=== PATIENT | male | born 1965 | race Caucasian/White ===

== ENCOUNTER 2024-01-05 23:01 | Emergency (ER) | payer OTHER | END 2024-01-05 23:09 | disposition left against medical advice (07) | LOC: ER 23:06 | DX: F29 Unspecified psychosis not due to a substance or known physiological condition (principal); Z53.21 Procedure and treatment not carried out due to patient leaving prior to being seen by health care provider ==

== ENCOUNTER 2024-11-11 19:12 | Emergency (ER) | payer OTHER | END 2024-11-11 21:12 | disposition left against medical advice (07) | LOC: ER 19:15 | DX: J11.1 Influenza due to unidentified influenza virus with other respiratory manifestations (principal); Z53.21 Procedure and treatment not carried out due to patient leaving prior to being seen by health care provider ==

== ENCOUNTER 2025-03-02 12:23 | Inpatient (IN) | payer OTHER ==
[~2025-03-02] VITALS: Ht 175.3 cm; Wt 62.6 kg
[2025-03-02] MEDS ORDERED: KETOROLAC TROMETHAMINE 15 MG/ML VIAL ONE (13:00)
[2025-03-02] MEDS ORDERED: LORAZEPAM INJ 2 MG/ML VIAL ONE (13:01)
[2025-03-02] MEDS: KETOROLAC TROMETHAMINE 15 MG/ML VIAL IV ONE (13:08)
[2025-03-02] MEDS: LORAZEPAM INJ 2 MG/ML VIAL IV ONE (13:08)
[2025-03-02] MEDS: IV NS 0.9% 1,000 ML BAG IV ONE ×2 (13:09→16:52)
[2025-03-02 13:44] LABS: BASOPHILS % (AUTO) 0.2 % (0.0-2.0); HEMATOCRIT 41 % (39-51); HEMOGLOBIN 13.5 g/dL (13.5-17.5); LYMPHOCYTES # (AUTO) 1.6 K/uL (0.8-4.8); LYMPHOCYTES % (AUTO) 6.7 % (20.0-44.0); MEAN CORPUSCULAR HEMOGLOBIN 29 PG (26.0-33.0); MEAN CORPUSCULAR HGB CONC 33 g/dl (31.0-36.0); MEAN CORPUSCULAR VOLUME 88 fL (80-96); MONOCYTES # (AUTO) 1.9 K/uL (0.1-1.30); MONOCYTES % (AUTO) 8.2 % (2.0-12.0); NEUTROPHILS # (AUTO) 20.1 K/uL (1.8-8.9); NEUTROPHILS % (AUTO) 84.9 % (43.0-81.0); PLATELET COUNT (AUTO) 419 K/uL (150-450); RED BLOOD CELL COUNT(AUTO) 4.65 MIL/uL (4.5-6.0); RED CELL DISTRIBUTION WIDTH 15.1 % (11.5-15.0); WHITE BLOOD COUNT (AUTO) 23.7 K/uL (4.3-11.0)
[2025-03-02 13:55] LABS: ALANINE AMINOTRANSFERASE 185 U/L (12-78); ALBUMIN 4.3 g/dL (3.4-5.0); ALCOHOL, BLOOD < 3 mg/dL (0-10); ALKALINE PHOSPHATASE 116 U/L (46-116); ASPARTATE AMINOTRANSFERASE 762 U/L (15-37); BILIRUBIN,DIRECT 0.2 mg/dL (0.0-0.2); BILIRUBIN,TOTAL 0.8 mg/dL (0.2-1.0); CALCIUM, SERUM 8.2 mg/dL (8.5-10.1); CARBON DIOXIDE 19 mmol/L (21-32); CHLORIDE 88 mmol/L (98-107); CREATININE 4.4 mg/dL (0.6-1.3); GLUCOSE 101 mg/dL (74-106); POTASSIUM 5.5 mmol/L (3.5-5.1); SODIUM SERUM 126 mmol/L (136-145); TOTAL PROTEIN, SERUM 8.2 g/dL (6.4-8.2)
[2025-03-02 14:09] LABS: ACETAMINOPHEN <10 ug/ml (10-30); SALICYLATE 2.4 mg/dL (2.8-20.0)
[2025-03-02 14:10] LABS: UREA NITROGEN, BLOOD 104 mg/dL (7-18)
[2025-03-02] MEDS: VANCOMYCIN 1 GM in IV D5W 250 ML IV ONE (16:52)
[2025-03-02] MEDS: PIPERACILLIN /TAZOBACTAM 3.375 G in IV D5W 50 ML IV ONE (16:53)
[2025-03-02 17:19] LABS: AMPHETAMINE, URINE POSITIVE (NEGATIVE); BARBITURATE, URINE NEGATIVE (NEGATIVE); BENZODIAZEPINE, URINE NEGATIVE (NEGATIVE); CANNABINOID, URINE NEGATIVE (NEGATIVE); COCCAINE, URINE NEGATIVE (NEGATIVE); OPIATE, URINE NEGATIVE (NEGATIVE); PHENCYCLIDINE SCREEN,URINE NEGATIVE (NEGATIVE)
[2025-03-02] MEDS ORDERED: TEMAZEPAM 15 MG CAPSULE PO PRN (17:30)
[2025-03-02] MEDS ORDERED: Z GUARD REMEDY 4 OZ OINT TP PRN (17:30)
[2025-03-02] MEDS ORDERED: MAGNESIUM HYDROXIDE 30 ML UDC PO PRN (17:30)
[2025-03-02] MEDS ORDERED: ONDANSETRON HCL/PF 4 MG/2 ML VIAL IVP PRN (17:30)
[2025-03-02] MEDS ORDERED: MAG HYDROX/AL HYDROX/SIMETH 30 ML UDC PO PRN (17:30)
[2025-03-02 17:36] LABS: APPEARANCE,URINE CLEAR (CLEAR); BILIRUBIN,URINE NEGATIVE (NEGATIVE); BLOOD, URINE 3+ Ery/uL (NEGATIVE); COLOR,URINE YELLOW (YELLOW); KETONES,URINE TRACE mg/dL (NEGATIVE); LEUKOCYTE ESTERASE ,URINE NEGATIVE (NEGATIVE); NITRITE, URINE NEGATIVE (NEGATIVE); PH,URINE 5.5 (5.0-8.0); PROTEIN,URINE 1+ mg/dl (NEGATIVE); UGLUCOSE NEGATIVE (NEGATIVE); UROBILINOGEN,URINE 0.2 EU/dL (0.2)
[2025-03-02 20:56] LABS: SQUAMOUS EPITHELIAL CELL,UR Many /HPF (None Seen); URINE AMORPHOUS URATE Many /HPF (None Seen)
[2025-03-02 20:57] LABS: ADD URINE CULTURE NO; BACTERIA,URINE Few /HPF (None Seen); RBC,URINE 0-2 /HPF (0-2)
[2025-03-02 22:00] VITALS: BP 98/54; TEMP 98.1; O2SAT 99
[2025-03-02] MEDS: IV NS 0.9% 1,000 ML IV PRN (23:01)
[2025-03-02] MEDS: ZOSYN IVPB 2.25 G in IV D5W 50ml IV SCH (23:02)
[2025-03-03] MEDS: ACETAMINOPHEN 325 MG TABLET PO PRN (04:51)
[2025-03-03 08:00] VITALS: BP 104/58; TEMP 97.9; O2SAT 97
[2025-03-03] MEDS: PANTOPRAZOLE 40 MG TABLET.DR PO SCH (09:29)
[2025-03-03 10:08] LABS: CALCIUM, SERUM 6.6 mg/dL (8.5-10.1); CREATININE 2.4 mg/dL (0.6-1.3); MAGNESIUM 2.5 mg/dL (1.8-2.4); PHOSPHORUS 3.2 mg/dL (2.5-4.9); POTASSIUM 4.3 mmol/L (3.5-5.1)
[2025-03-03 10:34] LABS: BASOPHILS % (AUTO) 0.2 % (0.0-2.0); EOSINOPHILS % (AUTO) 0.3 % (0.0-6.0); HEMATOCRIT 32 % (39-51); HEMOGLOBIN 10.7 g/dL (13.5-17.5); LYMPHOCYTES # (AUTO) 1.1 K/uL (0.8-4.8); LYMPHOCYTES % (AUTO) 9.4 % (20.0-44.0); MEAN CORPUSCULAR HEMOGLOBIN 29 PG (26.0-33.0); MEAN CORPUSCULAR HGB CONC 33 g/dl (31.0-36.0); MEAN CORPUSCULAR VOLUME 89 fL (80-96); MONOCYTES # (AUTO) 0.9 K/uL (0.1-1.30); MONOCYTES % (AUTO) 7.7 % (2.0-12.0); NEUTROPHILS # (AUTO) 10.1 K/uL (1.8-8.9); NEUTROPHILS % (AUTO) 82.4 % (43.0-81.0); PLATELET COUNT (AUTO) 287 K/uL (150-450); RED BLOOD CELL COUNT(AUTO) 3.65 MIL/uL (4.5-6.0); RED CELL DISTRIBUTION WIDTH 15.6 % (11.5-15.0); WHITE BLOOD COUNT (AUTO) 12.2 K/uL (4.3-11.0)
[2025-03-03 12:00] VITALS: BP 98/66; TEMP 96.5; O2SAT 98
[2025-03-03] MEDS ORDERED: MENTHOL/CETYLPYRD (CEPACOL) 1 LOZ LOZENGE MM PRN (12:30)
[2025-03-03 12:40] LABS: ALBUMIN 2.7 g/dL (3.4-5.0); BILIRUBIN,DIRECT 0.2 mg/dL (0.0-0.2); BILIRUBIN,TOTAL 0.5 mg/dL (0.2-1.0); TOTAL PROTEIN, SERUM 5.7 g/dL (6.4-8.2)
[2025-03-03 12:41] LABS: CHOLESTEROL 119 mg/dL (<200); HDL CHOLESTEROL 52 mg/dL (40-60); LDL 50 mg/dL (0-99); TRIGLYCERIDES 96 mg/dL (30-150)
[2025-03-03 16:00] VITALS: BP 106/60; TEMP 97.1; O2SAT 99
[2025-03-03] MEDS: VANCOMYCIN 750 MG in IV D5W 250 ML IV SCH (17:20)
[2025-03-03] MEDS: HYDROCODONE/APAP 5/325MG TABLET PO PRN (17:30)
[2025-03-03 20:00] VITALS: BP 97/58; TEMP 98.2; O2SAT 100
[2025-03-03] MEDS: IV NS 0.9% 1,000 ML IV PRN (21:05)
[2025-03-04] VITALS: BP 104/73; TEMP 98.1; O2SAT 97
[2025-03-04 04:00] VITALS: BP 127/72; TEMP 98.1; O2SAT 97
[2025-03-04 05:09] LABS: RAPID PLASMA REAGIN QUAL. Non Reactive (Non Reactive)
[2025-03-04 08:00] VITALS: BP 106/67; TEMP 97.9; O2SAT 96
[2025-03-04 08:25] LABS: BASOPHILS % (AUTO) 0.6 % (0.0-2.0); EOSINOPHILS # (AUTO) 0.1 K/uL (0.0-0.7); EOSINOPHILS % (AUTO) 0.9 % (0.0-6.0); HEMATOCRIT 35 % (39-51); HEMOGLOBIN 11.6 g/dL (13.5-17.5); LYMPHOCYTES # (AUTO) 1.5 K/uL (0.8-4.8); LYMPHOCYTES % (AUTO) 19.9 % (20.0-44.0); MEAN CORPUSCULAR HEMOGLOBIN 29 PG (26.0-33.0); MEAN CORPUSCULAR HGB CONC 34 g/dl (31.0-36.0); MEAN CORPUSCULAR VOLUME 87 fL (80-96); MONOCYTES # (AUTO) 0.9 K/uL (0.1-1.30); MONOCYTES % (AUTO) 12.3 % (2.0-12.0); NEUTROPHILS % (AUTO) 66.3 % (43.0-81.0); PLATELET COUNT (AUTO) 255 K/uL (150-450); RED BLOOD CELL COUNT(AUTO) 3.96 MIL/uL (4.5-6.0); RED CELL DISTRIBUTION WIDTH 15.3 % (11.5-15.0); WHITE BLOOD COUNT (AUTO) 7.5 K/uL (4.3-11.0)
[2025-03-04 08:39] LABS: CALCIUM, SERUM 7.8 mg/dL (8.5-10.1); CREATININE 1.1 mg/dL (0.6-1.3); MAGNESIUM 2.3 mg/dL (1.8-2.4); POTASSIUM 4.4 mmol/L (3.5-5.1)
[2025-03-04] MEDS: VANCOMYCIN 1 GM in IV D5W 250 ML IV SCH (15:10)
[2025-03-04 16:00] VITALS: BP 135/92; TEMP 97.5; O2SAT 99
[2025-03-04] MEDS ORDERED: VANCOMYCIN 1 GM in IV D5W 250ml IV SCH (17:00)
[2025-03-04] MEDS: K PHOS NEUTRAL 250 MG TABLET PO ONE (17:06)
[2025-03-04] MEDS: LACTOBACILLUS RHAMNOSUS GG 1 EACH CAP.SPRINK PO SCH (17:08)
[2025-03-04] MEDS: LORAZEPAM 1 MG TABLET PO PRN (18:54)
[2025-03-04 20:00] VITALS: BP 117/69; TEMP 99.1; O2SAT 96
[2025-03-05 04:00] VITALS: BP 129/81; TEMP 98.4; O2SAT 98
[2025-03-05 07:07] LABS: PTH, INTACT 117 pg/mL (15-65)
[2025-03-05 08:00] VITALS: BP 119/76; TEMP 98.4; O2SAT 96
[2025-03-05 08:50] LABS: BASOPHILS % (AUTO) 0.6 % (0.0-2.0); EOSINOPHILS # (AUTO) 0.1 K/uL (0.0-0.7); EOSINOPHILS % (AUTO) 1.6 % (0.0-6.0); HEMATOCRIT 36 % (39-51); LYMPHOCYTES # (AUTO) 1.7 K/uL (0.8-4.8); LYMPHOCYTES % (AUTO) 24.5 % (20.0-44.0); MEAN CORPUSCULAR HEMOGLOBIN 30 PG (26.0-33.0); MEAN CORPUSCULAR HGB CONC 34 g/dl (31.0-36.0); MEAN CORPUSCULAR VOLUME 88 fL (80-96); MONOCYTES % (AUTO) 14.5 % (2.0-12.0); NEUTROPHILS % (AUTO) 58.8 % (43.0-81.0); PLATELET COUNT (AUTO) 254 K/uL (150-450); RED BLOOD CELL COUNT(AUTO) 4.06 MIL/uL (4.5-6.0); RED CELL DISTRIBUTION WIDTH 15.5 % (11.5-15.0); WHITE BLOOD COUNT (AUTO) 6.8 K/uL (4.3-11.0)
[2025-03-05 09:53] LABS: CALCIUM, SERUM 8.2 mg/dL (8.5-10.1); CREATININE 0.9 mg/dL (0.6-1.3); POTASSIUM 4.6 mmol/L (3.5-5.1)
[2025-03-05 10:15] LABS: MAGNESIUM 1.9 mg/dL (1.8-2.4)
[2025-03-05 16:07] LABS: *HIV-1 RNA BY PCR <20 copies/mL (.)
[2025-03-10 07:11] LABS: *SPE A/G RATIO 1.1 (0.7-1.7); *SPE ALBUMIN 2.7 g/dL (2.9-4.4); *SPE ALPHA-1-GLOBULIN 0.3 g/dL (0.0-0.4); *SPE ALPHA-2-GLOBULIN 0.5 g/dL (0.4-1.0); *SPE BETA GLOBULIN 0.9 g/dL (0.7-1.3); *SPE GLOBULIN, TOTAL 2.5 g/dL (2.2-3.9); *SPE M-SPIKE Not Observed g/dL (Not Observed); *SPE PROTEIN TOTAL 5.2 g/dL (6.0-8.5); *SPEGAMMA GLOBULIN 0.8 g/dL (0.4-1.8)
== END 2025-03-05 13:07 | disposition home or self-care (01) | DRG 720 ==
LOC: ER 12:25 → TELE1 18:38 → MEDSG1 03-04 08:27
PROVIDERS: ADMIT Nurse Practitioner Acute Care; ATTEND Nurse Practitioner Acute Care
DX: A41.9 Sepsis, unspecified organism (principal); N17.0 Acute kidney failure with tubular necrosis; G92.8 Other toxic encephalopathy; E87.20 Acidosis, unspecified; E87.1 Hypo-osmolality and hyponatremia; M62.82 Rhabdomyolysis; E83.9 Disorder of mineral metabolism, unspecified; D72.829 Elevated white blood cell count, unspecified; E86.1 Hypovolemia; E87.5 Hyperkalemia; F41.9 Anxiety disorder, unspecified; K76.0 Fatty (change of) liver, not elsewhere classified; Z20.822 Contact with and (suspected) exposure to COVID-19; Z59.00 Homelessness unspecified; F15.10 Other stimulant abuse, uncomplicated; R91.1 Solitary pulmonary nodule; F43.23 Adjustment disorder with mixed anxiety and depressed mood; F39 Unspecified mood [affective] disorder
CPT/HCPCS: 36415; 71045-TC; 76770-TC; 76870-TC; 80048-TC; 80061-TC; 80076-TC; 81001; 82550-TC; 82553; 83605-TC; 83735-TC; 83970; 84100-TC; 84155; 84165; 85025-TC; 86403-TC; 86592; 86593; 87040-TC; 87070-TC; 87536; A4223; G0378; G0480; J1885; J2060; J2543; J3370; J3371; J7030; J7050; J7060